=== PATIENT | male | born 1975 | race Caucasian/White ===

== ENCOUNTER 2017-10-20 14:20 | Emergency (ER) | payer BC ==
--- NOTE | 2017-10-20 15:30 | EDM.PDOC ---
ED HPI GENERAL MEDICAL PROBLEM - General Chief Complaint: Head Injury Stated Complaint: FALL Time Seen by Provider: 10/20/17 15:18 - History of Present Illness INITIAL COMMENTS - FREE TEXT/NARRATIVE: HISTORY AND PHYSICAL: History of present illness: Patient is a 42-year-old male who presents after slipping and falling about 36 hours ago. The patient said he had about 4 beers which is not unusual for him and he slipped and fell hitting the left side of his head on the side of his truck. He was nauseated after the trauma but did not pass out or blackout and has no neck or back pain no extremity complaints no weakness numbness or tingling but feels dizzy and intermittently nauseated after this event. He has not had any vomiting or abdominal pain and no chest wall pain. Patient denies any facial pain, bite disturbances or visual disturbances. They were more concerned about his persistent dizziness and not it is intermittent. And he reassures me that he does not have any neck or back pain today. Review of systems: As per history of present illness and below otherwise all systems reviewed and negative. Past medical history: As per history of present illness and as reviewed below otherwise noncontributory. Surgical history: As per history of present illness and as reviewed below otherwise noncontributory. Social history: No reported history of drug or alcohol abuse. Family history: As per history of present illness and as reviewed below otherwise noncontributory. Physical exam: Gen.: Well-developed well-nourished man who is nontoxic and speaking clearly and easily in the ED. HEENT: normocephalic, there is mild tenderness at the left frontotemporal scalp area without defects or deformities there is no gross soft tissue swelling in this region, there is visible ecchymosis around the infraorbital area of the left eye, EOMs are intact, there are no palpable bony deformities of the orbits and no tenderness since region nor is there any tenderness defects or deformities at the zygoma the maxilla or the mandible or the nasal bridge. The pupils are reactive, negative for conjunctival pallor or scleral icterus, mucous membranes moist, throat clear, neck supple, nontender, trachea midline. No midline step-offs tenderness or defects of the cervical spine Lungs: Clear to auscultation, breath sounds equal bilaterally, chest nontender. Heart: S1S2, regular rate and rhythm no overt murmurs Abdomen: Soft, nondistended, nontender. NABS Pelvis: Deferred Genitourinary: Deferred. Rectal: Deferred. Extremities: Atraumatic, negative for cords or calf pain. Neurovascular unremarkable. Range of motion without any defects or deficits Neuro: Awake, alert, oriented. Cranial nerves II through XII unremarkable. Cerebellum unremarkable. Motor and sensory unremarkable throughout. Exam nonfocal. Diagnostics: CT scan of the head Therapeutics: I discussed with the patient that signs and symptoms of a concussion such as dizziness and nausea can last anywhere from one hour to 2 weeks and that he clearly has a concussion and these symptoms will be need to be monitored in our clinic. Impression: Blunt head trauma/concussion status post fall Definitive disposition and diagnosis as appropriate pending reevaluation and review of above. - Related Data Allergies Allergy/AdvReac Type Severity Reaction Status Date / Time No Known Allergies Allergy Verified 10/20/17 14:45 Home Meds: Home Meds . [No Known Home Meds] 10/20/17 [History] Past Medical History - Past Health History Medical/Surgical History: Denies Medical/Surgical History Social & Family History - Family History Family Medical History: Noncontributory - Tobacco Use Smoking Status *Q: Never Smoker - Caffeine Use Caffeine Use: Reports: Coffee, Energy Drinks, Tea - Recreational Drug Use Recreational Drug Use: No ED ROS GENERAL - Review of Systems Review Of Systems: ROS reveals no pertinent complaints other than HPI. ED EXAM, HEAD INJURY - Physical Exam Exam: See Below (See dictation) Course - Vital Signs Last Recorded V/S: Last Vital Signs Temp 37.0 C 10/20/17 14:45 Pulse 102 H 10/20/17 14:45 Resp 18 10/20/17 14:45 BP 150/90 H 10/20/17 14:45 Pulse Ox 95 10/20/17 14:45 Departure - Departure Time of Disposition: 16:12 Disposition: Home, Self-Care 01 Condition: Good Clinical Impression: Concussion injury of brain Blunt head trauma Qualifiers: Encounter type: initial encounter Qualified Code(s): S09.8XXA - Other specified injuries of head, initial encounter - Discharge Information Referrals: PCP,None [Primary Care Provider] - Forms: ED Department Discharge Additional Instructions: The following information is given to patients seen in the emergency department who are being discharged to home. This information is to outline your options for follow-up care. We provide all patients seen in our emergency department with a follow-up referral. The need for follow-up, as well as the timing and circumstances, are variable depending upon the specifics of your emergency department visit. If you don't have a primary care physician on staff, we will provide you with a referral. We always advise you to contact your personal physician following an emergency department visit to inform them of the circumstance of the visit and for follow-up with them and/or the need for any referrals to a consulting specialist. The emergency department will also refer you to a specialist when appropriate. This referral assures that you have the opportunity for followup care with a specialist. All of these measure are taken in an effort to provide you with optimal care, which includes your followup. Under all circumstances we always encourage you to contact your private physician who remains a resource for coordinating your care. When calling for followup care, please make the office aware that this follow-up is from your recent emergency room visit. If for any reason you are refused follow-up, please contact the [facility] emergency department at and ask to speak to the emergency department charge nurse. [facility] Primary care- Internal Medicine and Family [address] [address] Use ice to areas of swelling and take [id number] Tylenol/ibuprofen for pain and aches. Please call and follow-up with your provider in the clinic in the next few days for reevaluation further care. Please expect that symptoms of dizziness lightheadedness nausea pain will gradually improve over the next few days to 2 weeks. Return to ER as needed and as discussed
--- NOTE | 2017-10-20 16:03 | CT ---
EXAMINATION: Non contrast CT head. Coronal and sagittal reformats. HISTORY: Pain FINDINGS: No evidence of intra or extra axial hemorrhage, mass, midline shift, hydrocephalus or edema. No hypoattenuation changes in the major vascular territories to suggest acute infarct. No abnormal intracranial calcifications are detected. No evidence of substantial vascular calcificat ions. Paranasal sinuses and mastoid air cells are well aerated without substantial findings. Ultrasound wa s are symmetric. Pituitary fossa appears unremarkable. Calvarium is intact. No evidence of skull fracture. IMPRESSION: No acute intracranial findings.
== END 2017-10-20 16:37 | disposition home or self-care (01) ==
LOC: MW.ED 14:20
DX: S06.0X9A Concussion with loss of consciousness of unspecified duration, initial encounter (principal); W01.0XXA Fall on same level from slipping, tripping and stumbling without subsequent striking against object, initial encounter
CPT/HCPCS: 70450; 70450-26; 99284; 99284-25

== ENCOUNTER 2019-01-06 14:38 | Emergency (ER) | payer SELFPAY ==
[2019-01-06] MEDS ORDERED: Diphtheria,Pertussis(Acell),Tetanus Vaccine 0.5 ML Syringe IM ONE (15:11)
[2019-01-06] MEDS ORDERED: cefTRIAXone 1 GM Vial IM ONE (15:11)
--- NOTE | 2019-01-06 15:12 | EDM.PDOC ---
ED HPI GENERAL MEDICAL PROBLEM - General Chief Complaint: Upper Extremity Injury/Pain Stated Complaint: LEFT MIDDLE FINGER SMASHED Time Seen by Provider: 01/06/19 15:11 Source of Information: Reports: Patient - History of Present Illness INITIAL COMMENTS - FREE TEXT/NARRATIVE: HISTORY AND PHYSICAL: History of present illness: [A shunt work today developed crush injury left third digit distal tip he did split the skin on the lateral borders however x-ray performed no bone involvement entire limb neurovascularly intact to close the wound with #2 4-0 Prolene sutures interrupted after being cleansed and explored tetanus status is updated Sutures out in 10 days ] no fever nausea vomiting chills sweats Review of systems: As per history of present illness and below otherwise all systems reviewed and negative. Past medical history: As per history of present illness and as reviewed below otherwise noncontributory. Surgical history: As per history of present illness and as reviewed below otherwise noncontributory. Social history: No reported history of drug or alcohol abuse. Family history: As per history of present illness and as reviewed below otherwise noncontributory. Physical exam: HEENT: Atraumatic, normocephalic, pupils reactive, negative for conjunctival pallor or scleral icterus, mucous membranes moist, throat clear, neck supple, nontender, trachea midline. Lungs: Clear to auscultation, breath sounds equal bilaterally, chest nontender. Heart: S1S2, regular, negative for clicks, rubs, or JVD. Abdomen: Soft, nondistended, nontender. Negative for masses or hepatosplenomegaly. Negative for costovertebral tenderness. Pelvis: Stable nontender. Genitourinary: Deferred. Rectal: Deferred. Extremities: Atraumatic, negative for cords or calf pain. Neurovascular unremarkable. Neuro: Awake, alert, oriented. Cranial nerves II through XII unremarkable. Cerebellum unremarkable. Motor and sensory unremarkable throughout. Exam nonfocal. Diagnostics: [ left third digit ] Therapeutics: [ Rocephin 1 g IM Wound cleansed and explored #240 sutures Sutures out 10 days standard wound care ] bacitracin tube dressing Keflex 500 by mouth twice a day #20 no refill Impression: [ crush injury Laceration 1.5 cm linear simple, ] Definitive disposition and diagnosis as appropriate pending reevaluation and review of above. Left Finger-Middle Pain Score (Numeric/FACES): 5 - Related Data Allergies Allergy/AdvReac Type Severity Reaction Status Date / Time No Known Allergies Allergy Verified 01/06/19 15:15 Home Meds: Home Meds Glimepiride 01/06/19 [History] atorvaSTATin [Lipitor] 01/06/19 [History] Past Medical History - Past Health History Medical/Surgical History: Denies Medical/Surgical History Social & Family History - Family History Family Medical History: Noncontributory - Caffeine Use Caffeine Use: Reports: Coffee, Energy Drinks, Tea Review of Systems - Review of Systems Review Of Systems: See Below ED EXAM, GENERAL - Physical Exam Exam: See Below Course - Vital Signs Last Recorded V/S: Last Vital Signs Temp 97.2 F 01/06/19 15:14 Pulse 85 01/06/19 15:14 Resp 18 01/06/19 15:14 BP 147/91 H 01/06/19 15:14 Pulse Ox 95 01/06/19 15:14 - Orders/Labs/Meds Orders: Active Orders 24 hr Category Date Time Status Vaccines to be Administered [RC] PER UNIT ROUTINE Care 01/06/19 15:11 Active Meds: Medications Discontinued Medications Generic Name Dose Route Start Last Admin Trade Name Hughq PRN Reason Stop Dose Admin Ceftriaxone Sodium 1 gm 01/06/19 15:11 01/06/19 15:49 Rocephin IM 01/06/19 15:12 1 gm ONETIME ONE Administration Diphtheria/Tetanus/Acell Pertussis 0.5 ml 01/06/19 15:11 01/06/19 15:49 Adacel IM 01/06/19 15:12 0.5 ml .ONCE ONE Administration Lidocaine HCl Confirm 01/06/19 15:38 01/06/19 15:49 Xylocaine-Mpf 1% Administered 01/06/19 15:39 Not Given Dose 4 mls @ as directed .ROUTE .STK-MED ONE Lidocaine HCl Confirm 01/06/19 16:02 Xylocaine-Mpf 1% Administered 01/06/19 16:03 Dose 5 mls @ as directed .ROUTE .STK-MED ONE Lidocaine HCl 2.1 ml 01/06/19 15:48 01/06/19 15:49 Xylocaine 1% INJECT 01/06/19 15:49 2.1 ml ONETIME ONE Administration Lidocaine HCl 5 ml 01/06/19 16:00 01/06/19 16:04 Xylocaine 1% INJECT 01/06/19 16:01 Not Given ONETIME ONE Lidocaine HCl 5 ml 01/06/19 16:03 01/06/19 16:04 Xylocaine-Mpf 1% INJECT 01/06/19 16:04 5 ml ONETIME ONE Administration Lidocaine HCl 5 ml 01/06/19 16:04 01/06/19 16:04 Xylocaine-Mpf 1% INJECT 01/06/19 16:05 Not Given ONETIME ONE Departure - Departure Time of Disposition: 16:26 Disposition: Home, Self-Care 01 Condition: Good Clinical Impression: Laceration - Discharge Information Referrals: Edwin Dye MD [Primary Care Provider] - Forms: ED Department Discharge Additional Instructions: Keep wound clean and dry for 48 hours Medication as prescribed Standard wound care instruction Suture out in 10 days As tracing Telfa tube dressing The following information is given to patients seen in the emergency department who are being discharged to home. This information is to outline your options for follow-up care. We provide all patients seen in our emergency department with a follow-up referral. The need for follow-up, as well as the timing and circumstances, are variable depending upon the specifics of your emergency department visit. If you don't have a primary care physician on staff, we will provide you with a referral. We always advise you to contact your personal physician following an emergency department visit to inform them of the circumstance of the visit and for follow-up with them and/or the need for any referrals to a consulting specialist. The emergency department will also refer you to a specialist when appropriate. This referral assures that you have the opportunity for follow-up care with a specialist. All of these measure are taken in an effort to provide you with optimal care, which includes your follow-up. Under all circumstances we always encourage you to contact your private physician who remains a resource for coordinating your care. When calling for follow-up care, please make the office aware that this follow-up is from your recent emergency room visit. If for any reason you are refused follow-up, please contact the [facility] emergency department at and asked to speak to the emergency department charge nurse. - My Orders Last 24 Hours: My Active Orders 01/06/19 15:11 Vaccines to be Administered [RC] PER UNIT ROUTINE - Assessment/Plan Last 24 Hours: My Active Orders 01/06/19 15:11 Vaccines to be Administered [RC] PER UNIT ROUTINE
[2019-01-06] MEDS ORDERED: Lidocaine 1% 4 ML ONE (15:38)
[2019-01-06] MEDS ORDERED: Lidocaine 1% 20 ML MDV INJECT ONE (15:48)
--- NOTE | 2019-01-06 15:52 | CR ---
EXAMINATION: Left hand, third digit HISTORY: Pain COMPARISON: None TECHNIQUE: 3 views FINDINGS/IMPRESSION: There is soft tissue swelling noted adjacent to the distal third phalanx. There is no acute osseous abnormality fracture noted. Bone mineralization and joint spaces are otherwise preserved.
[2019-01-06] MEDS ORDERED: Lidocaine 1% 10 ML MDV INJECT ONE (16:00)
[2019-01-06] MEDS ORDERED: Bacitracin Oint 1 GM U/D Packet TOP ONE (16:34)
[2019-01-06] MEDS ORDERED: Bacitracin Oint 1 GM U/D Packet ONE (16:36)
== END 2019-01-06 16:50 | disposition home or self-care (01) ==
LOC: MW.ED 14:38
DX: S67.193A Crushing injury of left middle finger, initial encounter (principal); S61.213A Laceration without foreign body of left middle finger without damage to nail, initial encounter; Z23 Encounter for immunization; X58.XXXA Exposure to other specified factors, initial encounter
CPT/HCPCS: 12001; 73140; 90471; 90715; 96372; 99283; J0696; J2001; 99282